=== PATIENT | female | born 1985 | race African-American/Black ===

== ENCOUNTER 2024-06-01 19:30 | Emergency (ER) | payer SELFPAY ==
[~2024-06-01] VITALS: Ht 177.8 cm; Wt 68.0 kg
[2024-06-01 19:32] VITALS: TEMP 98.8; O2SAT 98
[2024-06-01 20:30] VITALS: O2SAT 97
[2024-06-01 20:36] VITALS: BP 106/66; PULSE 90; RESP 14
[2024-06-01] MEDS: TRAMADOL 50MG TABLET PO ONE (20:36)
[2024-06-01] MEDS ORDERED: IBUP-2029 MT (20:50)
== END 2024-06-01 21:10 | disposition left against medical advice (07) ==
LOC: ER 19:30
DX: N93.9 Abnormal uterine and vaginal bleeding, unspecified (principal); R10.2 Pelvic and perineal pain
CPT/HCPCS: 99283